=== PATIENT | female | born 1975 | race African-American/Black ===

== ENCOUNTER 2018-09-14 16:16 | Emergency (ER) | payer MEDICAID, SELFPAY ==
[2018-09-14 16:17] VITALS: BP 157/108; PULSE 122; RESP 17; TEMP 36.4; O2SAT 99; BMI 27.9
--- NOTE | 2018-09-14 16:37 | RAD_ITS ---
STUDY: X-RAY CHEST REASON FOR EXAM: Female, 43 years old. Neck and shoulder pain TECHNIQUE: PA and lateral views of the chest. # of Images: 2 COMPARISON: None. FINDINGS: Surgical clips in the right breast region The lungs are clear and expanded. There is no demonstrated pleural abnormality. Normal size heart. Normal mediastinum and vlad. Normal visualized pulmonary arteries. Normal visualized aortic arch and descending thoracic aorta. Normal visualized thoracic spine. Normal visualized ribs, clavicles, and shoulders. There is no demonstrated abnormality of the visualized soft tissue structures of the upper abdomen. RAD/Chest PA and Lateral IMPRESSION: Normal x-ray examination of the chest. Electronically Signed: Manoj Rosales DO at 17:37 EDT Tel , Service support ,
--- NOTE | 2018-09-14 16:37 | EKG12_ITS ---
Test Reason : Blood Pressure : / mmHG Vent. Rate : 097 BPM Atrial Rate : 097 BPM P-R Int : 160 ms QRS Dur : 076 ms QT Int : 328 ms P-R-T Axes : 080 079 065 degrees QTc Int : 416 ms Normal sinus rhythm Biatrial enlargement Possible Left ventricular hypertrophy Abnormal ECG Confirmed by JADEN HINES, ANISH ([id number]), commercial production editor JEET MARTIN ([id number] on 09/17/2018 12:24:42 PM Referred By: JACQUELINE Confirmed By:ANISH STANLEY MD
[2018-09-14 16:46] VITALS: PULSE 93; RESP 24; O2SAT 100
--- NOTE | 2018-09-14 16:48 | ED.RN ---
PT REPORTS CONSTANT RIGHT SHOULDER PAIN X 5 DAYS. REPORTS SOB, AND WORSENED ANXIETY THE LAST FEW DAYS ALSO. DRY NON PRODUCTIVE COUGH. PT DENIES PAIN IN CHEST.
[2018-09-14] MEDS: Ketorolac 30 MG/ML Syringe IV (17:23)
[2018-09-14 17:54] LABS: Hemoglobin 13.9 g/dl (12.0-15.0); Mean Corp Hgb Conc 34.8 g/gl (32-36); Mean Corpuscular Hgb 31.3 pg (27.0-32.0); Mean Corpuscular Volume 90.1 fL (81-99); Mean Platelet Vol. 8.6 fl (6.2-12.0); Platelet Count 387 K/mm3 (150-450); RBC Distribution Width SD 42.4 fl (35.1-43.9); Red Blood Count 4.44 M/mm3 (4.2-5.4); White Blood Count 9.2 K/mm3 (4.4-11.0)
[2018-09-14 17:57] LABS: Scan Indicated on CBC? Y/N NO
[2018-09-14 18:06] LABS: Prothrombin Time (Protime)PT. 12.9 SECONDS (11.7-14.9)
[2018-09-14 18:13] LABS: Anion Gap 10 (5-15); BUN 11 mg/dL (7-18); BUN/Creat Ratio 14.3 RATIO (10-20); Calcium,Total 9.2 mg/dL (8.5-10.1); Chloride 101 mmol/L (98-107); Creatinine, Serum 0.77 mg/dL (0.55-1.02); EST Glomerular Filtration Rate 88 mL/min (>60); Est Glom Filt Rate - Afr Amer 106 mL/min (>60); Estimated Creatinine Clearance 72.55 ml/min; Glucose 82 mg/dL (74-106); Potassium 3.4 mmol/L (3.5-5.1); Sodium Level 134 mmol/L (136-145)
[2018-09-14 18:16] LABS: D-Dimer Quantitative (DVT/PE) 0.61 FEU/ug/m (0.27-0.49)
--- NOTE | 2018-09-14 18:25 | CT_ITS ---
STUDY: CT CHEST WITHOUT CONTRAST REASON FOR EXAM: Female, 43 years old. Right shoulder and neck pain. Mildly elevated d-dimer RADIATION DOSAGE (If Supplied By Facility): CTDIvol = ( 26.27 ) mGy, DLP = ( 365.60 ) mGycm TECHNIQUE: Transaxial imaging was performed without the administration of intravenous contrast material. Please note that IV contrast was not administered as it infiltrated injection site # of Images: 1068 Individualized dose optimization techniques were used for this CT. COMPARISON: None. FINDINGS: The lungs are normal. There is no demonstrated pleural abnormality. Large bullous formation in the right lung apex. Normal heart and pericardium. Normal mediastinum. Normal hilar regions. Normal unenhanced pulmonary arteries. Normal aorta arch and descending thoracic aorta. Mildly prominent left hilar lymph nodes. There are multi-level degenerative changes of the thoracic spine. Status post cholecystectomy. Surgical clips in both breasts. CT/Chest without Contrast IMPRESSION: IV contrast was not administered for reasons above. Pulmonary and was taken not be excluded. Lungs are adequately inflated and clear. Large bullous formation in the right lung apex. Mildly prominent left axillary lymph nodes Electronically Signed: Manoj Rosales DO at 19:56 EDT Tel , Service support ,
[2018-09-14] MEDS: Morphine 4 MG/ML Syringe IV (18:45)
[2018-09-14] MEDS: Ondansetron 4 MG/2 ML Vial IV (18:45)
[2018-09-14 18:47] VITALS: PULSE 97; RESP 15; O2SAT 100
[2018-09-14 20:00] VITALS: PULSE 87; RESP 20; O2SAT 100
--- NOTE | 2018-09-14 20:04 | ED.VISSUMM ---
- ER Visit Summary Date of Service: 09/14/18 Chief Complaint: Right shoulder and neck pain History of Present Illness: The patient is a 43 F who presents with posterior right shoulder/chest pain. This is been present for 5 days. She has been trying multiple modalities at home including icy hot and hot compresses. This has provided some relief but her symptoms are getting worse. She states that it hurts to take a deep breath and she feels like she cannot take a deep breath. She denies any anterior chest pain or shortness of breath. She had initially attributed this to muscular spasm. She does have a history of prior similar symptoms with muscular spasm. However she also has a history of breast cancer with prior mastectomies. So notes that when she initially had the onset of symptoms she has been having some right leg pain which has since resolved. Physical Examination: Initial heart rate is 122 with blood pressure 157/1 8 vitals otherwise unremarkable Heart regular rhythm tachycardia Lungs are clear Patient does have reproducible posterior right thoracic tenderness in the distribution of the trapezius Abdomen soft nontender Extremities nontender without edema. Test Results: EKG shows sinus rhythm at a rate of 97. Laboratory studies notable for d-dimer of 0.61. Troponin is negative. INR normal. Two-view chest x-ray is normal. Emergency Department Course and Treatment: Given patient's cancer history pleuritic component and also report of right leg pain this raise concern for possible pulmonary embolism especially with her tachycardia. D-dimer was positive. A CTA was ordered. There was difficulty obtaining access but she did appear to have a functioning 20-gauge IV in the left upper arm. However while she was over at CAT scan this IV infiltrated and she did not have any contrast to the pulmonary arteries. We will still send this for a noncontrast read. However I cannot rule out pulmonary embolism. Patient will be empirically treated with Lovenox. I recommended hospital observation for either repeat attempts tomorrow versus a VQ scan versus venous duplexes. Treatment Plan: [] Disposition: Admit Impression: Posterior thoracic pain This note was generated with [employer] dictation software. It may contain incorrect words, spelling, and punctuation that were not noted in review of the chart prior to signing ED Disposition - Plan for ED Patient: Chief Complaint: Upper Extremity Injury Referrals: Diane Canales MD [Primary Care Provider] -
--- NOTE | 2018-09-14 20:07 | ED.DCSUM_ITS ---
- ER Visit Summary Date of Service: 09/14/18 Chief Complaint: Right shoulder and neck pain History of Present Illness: The patient is a 43 F who presents with posterior right shoulder/chest pain. This is been present for 5 days. She has been trying multiple modalities at home including icy hot and hot compresses. This has provided some relief but her symptoms are getting worse. She states that it hurts to take a deep breath and she feels like she cannot take a deep breath. She denies any anterior chest pain or shortness of breath. She had initially attributed this to muscular spasm. She does have a history of prior similar symptoms with muscular spasm. However she also has a history of breast cancer with prior mastectomies. So notes that when she initially had the onset of symptoms she has been having some right leg pain which has since resolved. Physical Examination: Initial heart rate is 122 with blood pressure 157/1 8 vitals otherwise unremarkable Heart regular rhythm tachycardia Lungs are clear Patient does have reproducible posterior right thoracic tenderness in the distribution of the trapezius Abdomen soft nontender Extremities nontender without edema. Test Results: EKG shows sinus rhythm at a rate of 97. Laboratory studies not able for d-dimer of 0.61. Troponin is negative. INR normal. Two-view chest x- ray is normal. Emergency Department Course and Treatment: Given patient's cancer history pleuritic component and also report of right leg pain this raise concern for possible pulmonary embolism especially with her tachycardia. D-dimer was positive. A CTA was ordered. There was difficulty obtaining access but she did appear to have a functioning 20-gauge IV in the left upper arm. However while she was over at CAT scan this IV infiltrated and she did not have any contrast to the pulmonary arteries. We will still send this for a noncontrast read. However I cannot rule out pulmonary embolism. Patient will be empirically treated with Lovenox. I recommended hospital observation for either repeat attempts tomorrow versus a VQ scan versus venous duplexes. Treatment Plan: [] Disposition: Admit Impression: Posterior thoracic pain This note was generated with [employer]140 dictation software. It may contain incorrect words, spelling, and punctuation that were not noted in review of the chart prior to signing ED Disposition - Plan for ED Patient: Chief Complaint: Upper Extremity Injury Referrals: Diane Canales MD [Primary Care Provider] -
--- NOTE | 2018-09-14 20:10 | ED.RN ---
PT REQUESTING PAIN MEDICATION, DR. HENDRICKS AWARE.
[2018-09-14] MEDS: Enoxaparin 80 MG/0.8 ML Syringe 70 MG SC (20:26)
--- NOTE | 2018-09-14 20:35 | ED.DEP ---
ED Disposition - Plan for ED Patient: Chief Complaint: Upper Extremity Injury Instructions: Pulmonary Embolism, ED Spasm Muscle Prescriptions: Rivaroxaban [Xarelto] 15 mg PO BID #42 tab Referrals: Nigel Tobar MD [STAFF PHYSICIAN] -
[2018-09-14 20:47] VITALS: BP 113/90; PULSE 103; RESP 22; O2SAT 97
== END 2018-09-14 20:48 | disposition home or self-care (01) ==
LOC: ED 17:28
PROVIDERS: Emergency Provider Emergency Medicine; Family Provider Internal Medicine; PCP Internal Medicine
DX: M54.6 Pain in thoracic spine (principal); Z85.3 Personal history of malignant neoplasm of breast; Z72.0 Tobacco use
CPT/HCPCS: 36415; 71046; 71250; 80048; 84484; 85027; 85379; 85610; 93005; 96372; 96374; 96375; 99285; A4216; J2405

== ENCOUNTER 2018-09-27 13:14 | Emergency (ER) | payer MEDICAID, SELFPAY ==
[2018-09-27 13:15] VITALS: BP 134/83; PULSE 95; RESP 14; TEMP 35.9; O2SAT 100; BMI 27.9
--- NOTE | 2018-09-27 13:34 | EKG12_ITS ---
Test Reason : UPPER EXTREMITY Blood Pressure : / mmHG Vent. Rate : 078 BPM Atrial Rate : 078 BPM P-R Int : 170 ms QRS Dur : 088 ms QT Int : 382 ms P-R-T Axes : 016 075 052 degrees QTc Int : 435 ms Normal sinus rhythm Minimal voltage criteria for LVH, may be normal variant Borderline ECG Confirmed by LV HINES, NGHIA ([id number]), staff editor CESAR WHEATLEY ([id number]) on 10/01/2018 3:55:38 PM Referred By: SHRUTI Confirmed By:NGHIA AWAN MD
--- NOTE | 2018-09-27 14:07 | ED.RN ---
Medic attempting IV.
[2018-09-27] MEDS: Ketorolac 30 MG/ML Syringe IV (14:11)
[2018-09-27] MEDS: MethylPREDNISolone 125 MG/2 ML Vial IV (14:11)
[2018-09-27] MEDS: 0.9% Normal Saline 1,000 ML 150 ML IV (14:11)
[2018-09-27 14:15] VITALS: BP 118/75; PULSE 81; RESP 24; O2SAT 100
--- NOTE | 2018-09-27 14:15 | RAD_ITS ---
STUDY: X-RAY CHEST REASON FOR EXAM: Female, 43 years old. Chest pain. TECHNIQUE: Single AP portable view of the chest. COMPARISON: Comparison is made with prior study dated September 14, 2018. FINDINGS: EKG electrodes are seen. Stable increased linear markings in the right upper lobe suggestive of scarring. Surgical clips are seen overlying the right hemithorax. There is no demonstrated pleural abnormality. Normal size heart. Normal mediastinum and vlad. Normal visualized pulmonary arteries. Normal visualized aortic arch and descending thoracic aorta. Normal visualized thoracic spine. Normal visualized ribs, clavicles, and shoulders. Prior cholecystectomy. RAD/Chest 1 View (Portable) IMPRESSION: Stable findings of increasing markings in the right upper lobe suggestive of scarring. Electronically Signed: Jaret Gordillo MD at 14:44 EDT Tel [phone], Service support ,
[2018-09-27 14:19] LABS: Absolute Lymphocyte Count 3.62 X10^3/ul (0.83-4.51); Absolute Neutrophil Count 4.1 X10^3/uL (2.0-7.7); Basophil# 0.02 X10^3/uL; Basophil% 0.2 % (0-1); Eosinophils% 3.5 % (0-5); Hematocrit 36.6 % (37-47); Lymphocyte # 3.62 X10^3/ul (4.0); Lymphocyte % 42.5 % (19-41); Mean Corp Hgb Conc 32.8 g/gl (32-36); Mean Corpuscular Hgb 30.9 pg (27.0-32.0); Mean Corpuscular Volume 94.3 fL (81-99); Mean Platelet Vol. 8.6 fl (6.2-12.0); Monocyte# 0.45 X10^3/uL; Monocyte% 5.3 % (0-10); Neutrophil # 4.11 X10^3/uL (2.7-7.7); Neutrophil % 48.3 % (47-70); Platelet Count 338 K/mm3 (150-450); RBC Distribution Width CV 13.4 % (11.6-14.6); RBC Distribution Width SD 45.7 fl (35.1-43.9); Red Blood Count 3.88 M/mm3 (4.2-5.4); White Blood Count 8.5 K/mm3 (4.4-11.0)
[2018-09-27 14:23] LABS: POSITIVE COUNT NO; POSITIVE DIFFERENTIAL NO; POSITIVE MORPHOLOGY NO
[2018-09-27 14:26] LABS: Anion Gap 7 (5-15); BUN 11 mg/dL (7-18); BUN/Creat Ratio 13.9 RATIO (10-20); Calcium,Total 8.8 mg/dL (8.5-10.1); Chloride 105 mmol/L (98-107); Creatinine, Serum 0.79 mg/dL (0.55-1.02); EST Glomerular Filtration Rate 85 mL/min (>60); Est Glom Filt Rate - Afr Amer 103 mL/min (>60); Estimated Creatinine Clearance 70.72 ml/min; Glucose 99 mg/dL (74-106); Potassium 3.8 mmol/L (3.5-5.1); Sodium Level 137 mmol/L (136-145)
[2018-09-27 14:29] LABS: D-Dimer Quantitative (DVT/PE) 0.55 FEU/ug/m (0.27-0.49)
--- NOTE | 2018-09-27 14:29 | ED.RN ---
critical value on d-dimer taken from lab. Dr. Joe jenkins.
--- NOTE | 2018-09-27 15:03 | ED.VISSUMM ---
- ER Visit Summary Date of Service: 09/27/18 Chief Complaint: Right arm pain, cough History of Present Illness: The patient is a 43 F who was seen 2 weeks ago with right-sided neck and shoulder pain. Her d-dimer was slightly elevated. Her IV infiltrated when she was sent for a CTA of the chest. She is placed on Xarelto prophylactically. Venous ultrasound of the legs was negative yesterday. Patient is scheduled to go to [place] tomorrow for CTA of her chest. When PCPs office called today to notify her of the ultrasound results she noted continued significant pain to the lateral portion of her right shoulder and she was advised to come to the emergency room. Patient denies actual chest pain or shortness of breath. She has been on Xarelto for the past 2-1/2 weeks. Physical Examination: Vital signs are unremarkable. Patient sitting upright in bed no acute distress. Head neck examination is normal. Heart is regular rate and rhythm. Lung sounds are clear. Abdomen is soft and nontender. Right upper extremity examination was tenderness across the top of the shoulder and over the biceps muscle in the right upper extremity. She has full range of motion with no overlying skin changes. Strong distal pulses are noted. Test Results: EKG is sinus at 78 with no sign of acute ischemia. Chest x-ray shows stable findings of increased markings in the right upper lung suggestive of scarring. CBC and chemistry studies are normal. D-dimer remains slightly elevated at 0.55. This is compared to a d-dimer of 0.61 on her last visit. Emergency Department Course and Treatment: Patient was given Toradol and Solu-Medrol. Due to continued pain she was given a small dose of Dilaudid and Zofran. I discussed the elevated d-dimer with her. Patient currently has a 22-gauge IV in her left forearm. I spoke with CT and they ask for a 20-gauge or larger before injecting. Nursing staff states that there is no other options available for them to establish access. I spoke with the patient about possible central line placement for a CT. At this time patient would prefer to follow-up tomorrow at [place]. She is already on Xarelto. I think this is reasonable. Patient be given a prescription for Percocet as she has been on this in the past without difficulty. Treatment Plan: [] Disposition: Discharge Impression: Right shoulder strain Elevated d-dimer This note was generated with [employer] dictation software. It may contain incorrect words, spelling, and punctuation that were not noted in review of the chart prior to signing ED Disposition - Plan for ED Patient: Chief Complaint: Upper Extremity Injury Referrals: Nigel Tobar MD [Primary Care Provider] -
--- NOTE | 2018-09-27 15:08 | ED.DCSUM_ITS ---
- ER Visit Summary Date of Service: 09/27/18 Chief Complaint: Right arm pain, cough History of Present Illness: The patient is a 43 F who was seen 2 weeks ago with right-sided neck and shoulder pain. Her d-dimer was slightly elevated. Her IV infiltrated when she was sent for a CTA of the chest. She is placed on Xarelto prophylactically. Venous ultrasound of the legs was negative yesterday. Patient is scheduled to go to [place] tomorrow for CTA of her chest. When PCPs office called today to notify her of the ultrasound results she noted continued significant pain to the lateral portion of her right shoulder and she was advised to come to the emergency room. Patient denies actual chest pain or s hortness of breath. She has been on Xarelto for the past 2-1/2 weeks. Physical Examination: Vital signs are unremarkable. Patient sitting upright in bed no acute distress. Head neck examination is normal. Heart is regular rate and rhythm. Lung sounds are clear. Abdomen is soft and nontender. Right upper extremity examination was tenderness across the top of the shoulder and over the biceps muscle in the right upper extremity. She has full range of motion with no overlying skin changes. Strong distal pulses are noted. Test Results: EKG is sinus at 78 with no sign of acute ischemia. Chest x-ray shows stable findings of increased markings in the right upper lung suggestive of scarring. CBC and chemistry studies are normal. D-dimer remains slightly elevated at 0.55. This is compared to a d-dimer of 0.61 on her last visit. Emergency Department Course and Treatment: Patient was given Toradol and Solu- Medrol. Due to continued pain she was given a small dose of Dilaudid and Zofran. I discussed the elevated d-dimer with her. Patient currently has a 22- gauge IV in her left forearm. I spoke with CT and they ask for a 20-gauge or larger before injecting. Nursing staff states that there is no other options available for them to establish access. I spoke with the patient about possible central line placement for a CT. At this time patient would prefer to follow-up tomorrow at [place]. She is already on Xarelto. I think this is reasonable. Patient be given a prescription for Percocet as she has been on this in the past without difficulty. Treatment Plan: [] Disposition: Discharge Impression: Right shoulder strain Elevated d-dimer This note was generated with [employer] dictation software. It may contain incorrect words, spelling, and punctuation that were not noted in review of the chart prior to signing ED Disposition - Plan for ED Patient: Chief Complaint: Upper Extremity Injury Referrals: Nigel Tobar MD [Primary Care Provider] -
--- NOTE | 2018-09-27 15:10 | DCINST.ED_ITS ---
ED Disposition - Plan for ED Patient: Disposition: Home or Assisted Living Chief Complaint: Upper Extremity Injury Instructions: ED Sprain Shoulder Prescriptions: Oxycodone HCl/Acetaminophen [Percocet 5/325] 1 tablet PO Q6H PRN PRN 3 Days #12 tablet PRN Reason: Pain Referrals: Nigel Tobar MD [Primary Care Provider] - Additional Instructions: Follow-up tomorrow at [place] as discussed.
[2018-09-27] MEDS: HYDROmorphone 0.5 MG/0.5 ML SYRINGE IV (15:23)
[2018-09-27] MEDS: Ondansetron 4 MG/2 ML Vial IV (15:24)
[2018-09-27 15:31] VITALS: BP 120/85; PULSE 70; RESP 16; O2SAT 100
== END 2018-09-27 15:32 | disposition home or self-care (01) ==
PROVIDERS: Emergency Provider Emergency Medicine; Family Provider Family Medicine; PCP Family Medicine
DX: S46.211A Strain of muscle, fascia and tendon of other parts of biceps, right arm, initial encounter (principal); X58.XXXA Exposure to other specified factors, initial encounter; R79.1 Abnormal coagulation profile; Z79.01 Long term (current) use of anticoagulants; Z72.0 Tobacco use
CPT/HCPCS: 71045; 80048; 85025; 85379; 93005; 96361; 96374; 96375; 99285; J7030; J2405

== ENCOUNTER 2019-07-16 12:06 | Emergency (ER) | payer MEDICAID, SELFPAY ==
[2019-07-16 12:06] VITALS: BP 158/83; PULSE 113; RESP 16; TEMP 36.7; O2SAT 99; BMI 27.0
[2019-07-16 12:17] VITALS: BP 120/76; PULSE 74; RESP 19; TEMP 36.7; O2SAT 99
--- NOTE | 2019-07-16 12:27 | ED.DCSUM_ITS ---
- ER Visit Summary Date of Service: 07/16/19 Chief Complaint: [Redness and swelling to right third toe] History of Present Illness: The patient is a 44 F [resents to the emergency department with complaint of redness and swelling to the right third toe that she noticed 3 days ago. Patient states that she had a mosquito bite to the area and was scratching at it. She denies any other trauma. She denies any fevers. Patient not having pain with ambulation.] Physical Examination: [Right foot-patient has a blister to the base of the right third toe in the webspace adjacent to the fourth toe. There is purulent fluid underneath the blister. There is some faint erythema in the webspace between the third and fourth toe. No bony tenderness on exam. Neurovascular intact.] Test Results: [None indicated] Emergency Department Course and Treatment: [Incision and drainage of suspected abscess-skin was cleansed with alcohol and using a 18-gauge needle stab incision was made into the infected blister and large amount of free-flowing purulent debris was expressed. Dressing was applied. She was started on Keflex and Bactrim.] Treatment Plan: [Patient will be treated with Keflex and Bactrim. Patient will be advised to follow-up with primary care physician within next 3 to 5 days.] Disposition: [Discharged home in stable condition] Impression: [Right third toe abscess with incision and drainage Cellulitis right third toe] This note was generated with [employer] dictation software. It may contain incorrect words, spelling, and punctuation that were not noted in review of the chart prior to signing ED Disposition - Plan for ED Patient: Referrals: Nigel Tobar MD [Primary Care Provider] -
--- NOTE | 2019-07-16 12:29 | ED.DEP ---
ED Disposition - Plan for ED Patient: Instructions: Cellulitis, ABSCESS, Incision and Drainage Prescriptions: Smz/Tmp Ds [Bactrim Ds] 1 tab PO BID #14 tab Prescription Printed Cephalexin [Keflex] 500 mg PO Q6 #40 cap Prescription Printed Referrals: Nigel Tobar MD [Primary Care Provider] - 3-5 Days
[2019-07-16] MEDS: Smz/Tmp Ds Tablet 1 TABLET PO (12:40)
[2019-07-16] MEDS: Cephalexin 250 MG Capsule 500 MG PO (12:40)
[2019-07-16 12:50] VITALS: RESP 19
== END 2019-07-16 12:50 | disposition home or self-care (01) ==
LOC: ED 12:45
PROVIDERS: Emergency Provider Emergency Medicine; Family Provider Family Medicine; PCP Family Medicine
DX: L02.611 Cutaneous abscess of right foot (principal); L03.031 Cellulitis of right toe; Z72.0 Tobacco use
CPT/HCPCS: 10060; 99283

== ENCOUNTER 2021-07-25 06:39 | Emergency (ER) | payer MEDICAID, SELFPAY ==
[2021-07-25 06:40] VITALS: BP 144/86; PULSE 89; RESP 16; TEMP 36.7; O2SAT 100; BMI 28.9
--- NOTE | 2021-07-25 06:43 | RAD_ITS ---
STUDY: X-RAY - RIGHT FOOT CLINICAL: Female, 46 years old. pain TECHNIQUE: 3 view(s) of the foot. COMPARISON: None. FINDINGS: Normal talus, calcaneus, and tarsal bones. Normal visualized subtalar, talonavicular, calcaneocuboid, tarsal and tarsometatarsal articulations. Normal metatarsi. Normal metatarsophalangeal joint of the great toe. Normal tibial and fibular sesamoid bones. Normal interphalangeal joint of the great toe. Normal phalanges of the great toe. Normal second through fifth metatarsophalangeal joints. Normal interphalangeal joints and phalanges of the lesser toes. The soft tissue structures are unremarkable. RAD/Foot min 3 Views IMPRESSION: Normal x-ray examination of the foot. Electronically Signed: Joe Medel MD at 7:16 EDT Tel , Service support ,
--- NOTE | 2021-07-25 06:44 | RAD_ITS ---
STUDY: X-RAY - RIGHT ANKLE REASON FOR EXAM: Female, 46 years old. pain TECHNIQUE: 3 view(s) of the ankle. COMPARISON: None. FINDINGS: Normal visualized distal tibia and fibula. Normal medial and lateral malleoli. Normal tibiotalar articulation and ankle mortise. Normal visualized talus and calcaneus. The visualized subtalar, talonavicular, calcaneocuboid and tarsal articulations are normal. The soft tissue structures are unremarkable. RAD/Ankle min 3 Views IMPRESSION: Normal x-ray examination of the ankle. Electronically Signed: Joe Medel MD at 7:15 EDT Tel , Service support ,
--- NOTE | 2021-07-25 06:55 | ED.VIS.LOWEX ---
HPI History of Present Illness Chief Complaint: Lower Extremity Injury Informant: patient Narrative Narrative: Patient is a 46-year-old female presenting with atraumatic right foot pain. 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 She started having some pain 2 days ago. States the pain normally goes away but it did not last night which brought brought her to the emergency room. She not take anything for the pain. She denies associated numbness or tingling. She notes over the years she has had intermittent pain in this area but it is always gone away and the fact that it has not was abnormal. She is also concerned that she has to go back to work tonight. [facility] Medical History Breast CA Home Medications pregabalin [Lyrica] 75 mg PO BID 07/25/21 [History Last Taken Unknown] Allergy/AdvReac Type Severity Reaction Status Date / Time No Known Allergies Allergy Verified 07/25/21 06:43 Surgical History H/O mastectomy Hx of cholecystectomy Social History Smoking Status: Current every day smoker tobacco type: cigarettes ROS ROS ED Constitutional Constitutional ED: Denies chills or fever(s) Eyes Eyes: Denies change in vision ENT ENT ED: Denies rhinorrhea Cardiovascular Cardiovascular: Denies chest pain Respiratory/Chest Respiratory/Chest: Denies cough or dyspnea Gastrointestinal Gastrointestinal: Denies abdominal pain or nausea Musculoskeletal Musculoskeletal: Reports other Details: Right foot pain ; Denies arthralgias or myalgias Integumentary Denies rash Neurologic Neurologic: Denies headache(s), paresthesias or weakness EXAM Physical Exam Const Vital Signs: 07/25/21 06:40 Temperature 98.1 F Temperature Source Oral Pulse Rate 89 Respiratory Rate 16 Blood Pressure 144/86 H Blood Pressure Mean 105 Pulse Ox 100 Oxygen Delivery Method Room Air Positive well nourished and well developed General Appearance ED: well developed HEENT normocephalic Eyes PERRL Neck full ROM Chest Wall inspection of chest normal Resp normal respiratory effort and clear to auscultation bilaterally Cardio regular rate, regular rhythm and no murmurs Cardio Narrative: 2+ bilateral DP and PT pulses. Brisk capillary refill. GI non-distended Extremity normal to inspection and full ROM Extremity Narrative: No obvious deformity of the right lower extremity. Normal Cadet test. No bony tenderness. Patient has a pinpoint area of tenderness just below the right lateral malleolus. General Extremety ED: Negative for edema General Extremity: Negative for edema Neuro oriented x3, moves all extremities and no sensory deficits noted Sensorium / Orientation: alert Psych mental status grossly normal Skin Lesions: no lesions Rashes: no rashes MDM MDM MDM Narrative Medical decision making narrative: Patient evaluated for atraumatic right foot pain. Will obtain x-rays. On physical exam there is no concerns for trauma or acute infection. I suspect is muscle skeletal. As long as there is no alarming findings on x-ray, will refer to podiatry for outpatient follow-up and recommend rice therapy. Radiography X-Ray: Read by ED Physician and No Fracture Discharge Plan Triage Chief Complaint: Lower Extremity Injury ED Provider: Melisa Shultz Dx/Rx/DC Orders Clinical Impression: Acute pain of right foot Instructions: DANIEL HUERTA Foot Sprain Prescriptions: No Action pregabalin [Lyrica] 75 mg Capsule 75 mg PO BID RF: 0 Primary Care Provider: Nigel Tobar Referrals: Milan Quinones DPM [STAFF PHYSICIAN] - Nigel Tobar MD [Primary Care Provider] - Disposition Disposition: Home, Self Care
[2021-07-25] MEDS: Ibuprofen 600 MG Tablet PO (07:03)
[2021-07-25 07:23] VITALS: RESP 17
== END 2021-07-25 07:24 | disposition home or self-care (01) ==
PROVIDERS: Emergency Provider Emergency Medicine; PCP Family Medicine
DX: M79.671 Pain in right foot (principal); F17.210 Nicotine dependence, cigarettes, uncomplicated; Z79.899 Other long term (current) drug therapy
CPT/HCPCS: 73610; 73630; 99283

== ENCOUNTER → 2021-08-20 07:20 | Outpatient (CLI) | payer MEDICAID, SELFPAY ==
--- NOTE | 2021-08-20 07:33 | MRI_ITS ---
STUDY: MRI RIGHT ANKLE WITHOUT CONTRAST REASON FOR EXAM: Female, 46 years old. CALCANEUS FX TECHNIQUE: Standardized fat and water weighted pulse sequences were obtained in all 3 orthogonal planes. COMPARISON: X-ray dated 07/25/2020. FINDINGS: No acute calcaneal fracture. No dislocation. No bone destruction. Tibiotalar cartilage preserved. Subtalar cartilage preserved. Talonavicular cartilage preserved. Calcaneocuboid cartilage preserved. Navicular cuneiform cartilage preserved. Mild second tarsometatarsal joint arthrosis. No significant bone marrow edema or contusion. Small tibiotalar/subtalar joint effusion. No significant soft tissue swelling. No solid, cystic or lipomatous soft tissue lesions. Normal Lisfranc ligament. Normal syndesmotic. Normal anterior and posterior talofibular ligaments. Normal sinus Tarsi/subtalar ligament. Normal deltoid ligament. Normal spring ligament. Normal extensor tendons. Minimal peroneus longus and brevis tenosynovitis without tendon tear (axial images 16 and 17 series 8). Normal posterior tibialis and flexor tendons. Normal Achilles tendon. Trace retrocalcaneal bursitis (sagittal image 11 series 7). Normal plantar fascial. Normal muscles of the midfoot/hindfoot. MRI/Lower Ext Joint Only (Routine) IMPRESSION: No calcaneal fracture Trace retrocalcaneal bursitis Mild peroneus longus/brevis tenosynovitis Small tibiotalar/subtalar joint effusion Mild second tarsometatarsal joint arthrosis Electronically Signed: Mohit Shirley DO at 12:31 EDT Tel , Service support ,
== END ==
PROVIDERS: PCP Family Medicine; Referring Provider Podiatrist Foot & Ankle Surgery; Visit Provider Podiatrist Foot & Ankle Surgery
DX: S92.001A Unspecified fracture of right calcaneus, initial encounter for closed fracture (principal)
CPT/HCPCS: 73721

== ENCOUNTER 2022-09-06 12:20 | Emergency (ER) | payer MEDICAID, SELFPAY ==
[2022-09-06] VITALS (7 sets, daily range): BP systolic 138–176; BP diastolic 87–109; PULSE 85–102; RESP 14–22; TEMP 36.1; O2SAT 100; BMI 28.7
--- NOTE | 2022-09-06 13:34 | CT_ITS ---
STUDY: CT Chest W/O Contrast Injection 09/06/2022 4:45 PM REASON FOR EXAM: Female, 47 years old. chest and back pain Individualized dose optimization techniques were used for this CT. TECHNIQUE: Transaxial imaging was performed withoutIV contrast material. COMPARISON: 09.14.18 FINDINGS: There are scattered blebs and bullae. This can be seen in pulmonary emphysema. Stable right apical bleb or bullae. There is no pneumothorax. There is no demonstrated pleural abnormality. Stable axillary adenopathy. Normal heart and pericardium with no evidence for calcifications of the coronary arteries. Normal mediastinum. Normal hilar regions. Normal pulmonary arteries. Normal aorta arch and descending thoracic aorta. Normal osseous structures. The gallbladder is surgically absent. CT/Chest without Contrast IMPRESSION: Stable axillary adenopathy. There are no acute findings. Electronically Signed: Edwin Carreno MD at 16:48 EDT ,
--- NOTE | 2022-09-06 13:35 | EKG12_ITS ---
Test Reason : CP Blood Pressure : / mmHG Vent. Rate : 111 BPM Atrial Rate : 111 BPM P-R Int : 168 ms QRS Dur : 072 ms QT Int : 332 ms P-R-T Axes : 073 074 063 degrees QTc Int : 451 ms Sinus tachycardia Biatrial enlargement Left ventricular hypertrophy ( Sokolow-Henry , Romhilt-Oakley ) Abnormal ECG Confirmed by JADEN HINES, ANISH ([id number]), publication editor HARLEEN MEDEL ([id number]) on 09/08/2022 12:59:40 PM Referred By: SANAZ/KIMMY Confirmed By:ANISH STANLEY MD
--- NOTE | 2022-09-06 13:36 | EDS_ITS ---
HPI History of Present Illness Chief Complaint: Chest Pain Detail of Chief Complaint: Pain in chest and back and left arm Informant: patient Narrative Narrative: Patient presents the emergency department with complaint of pain in her back and chest and underneath her left arm that started 5 days ago. Patient states that she was seen at urgent care yesterday and had some x-rays and was started on prednisone. She has history of degenerative disc disease. Patient states pain worse with movement and cough and deep breath. She denies any injury. She denies recent travel or surgery. She has no history of PE or DVT. Patient describes a pressure and a heaviness in her back and chest. She had no nausea or vomiting. She denies shortness of breath. Patient states that initially she thought that she had a pulled muscle. Prior Similar Symptoms: No PFSH PFSH Medical History Breast CA Home Medications pregabalin 75 mg capsule (Lyrica) 75 mg PO BID 07/25/21 [History Last Taken Unknown] cyclobenzaprine 10 mg tablet 10 mg PO TID PRN Muscle Spasm #20 TABLETS 09/06/22 [Rx Last Taken Unknown] hydrocodone-acetaminophen 5-325mg 5mg-325mg 1 tab PO Q4H PRN PRN Pain 2 days #14 TABLETS 09/06/22 [Rx Last Taken Unknown] lidocaine 5 % topical patch 1 patch transdermal DAILY 09/06/22 [History Last Taken Unknown] naproxen 500 mg tablet 500 mg PO BID #14 tabs 09/06/22 [Rx Last Taken Unknown] prednisone 20 mg tablet 40 mg PO BID 09/06/22 [History Last Taken Unknown] Allergy/AdvReac Type Severity Reaction Status Date / Time No Known Allergies Allergy Verified 09/06/22 12:22 Surgical History H/O mastectomy Hx of cholecystectomy Social History Smoking Status: Current every day smoker tobacco type: cigarettes ROS ROS ED Review of Systems ROS Unobtainable: other Constitutional Constitutional ED: Reports lethargy; Denies chills, fever(s), sweats or weight loss Eyes Eyes: Denies blurry vision, change in vision or diplopia ENT ENT ED: Denies rhinorrhea or sore throat Cardiovascular Cardiovascular: Reports chest pain; Denies orthopnea or racing heartbeat Respiratory/Chest Respiratory/Chest: Denies cough, dyspnea, dyspnea on exertion, orthopnea or sputum Gastrointestinal Gastrointestinal: Denies abdominal pain, diarrhea, nausea or vomiting Genitourinary Genitourinary ED: Denies dysuria, hematuria or urinary frequency Musculoskeletal Musculoskeletal: Reports back pain; Denies arthralgias, myalgias or neck pain Integumentary Denies abscess, Abrasions or rash Neurologic Neurologic: Denies headache(s) or weakness Psychiatric Psychiatric: Denies anxiety, depression or suicidal thoughts Endocrine Endocrinology: Denies polydipsia, polyphagia or polyuria Hematologic/Lymphatic Hematologic/Lymphatic: Denies easy bleeding, easy bruising or lymphadenopathy Allergic/Immunologic Allergic/Immunologic ED: Denies mouth swelling, tongue swelling or urticaria EXAM Physical Exam Const Vital Signs: 09/06/22 12:21 09/06/22 13:20 09/06/22 13:35 Temperature 96.9 F L Temperature Source Temporal Pulse Rate 102 H 85 Respiratory Rate 18 14 Blood Pressure 176/109 H 147/87 H Blood Pressure Mean 131 107 Pulse Ox 100 Oxygen Delivery Method Room Air Room Air Room Air 09/06/22 14:00 09/06/22 15:00 09/06/22 16:00 Temperature Temperature Source Pulse Rate Respiratory Rate 16 16 16 Blood Pressure Blood Pressure Mean Pulse Ox Oxygen Delivery Method 09/06/22 17:00 Temperature Temperature Source Pulse Rate 88 Respiratory Rate 22 H Blood Pressure 138/94 H Blood Pressure Mean 108 Pulse Ox Oxygen Delivery Method Positive well nourished and well developed General Appearance ED: well developed and NAD HEENT Reports TM's clear and moist mucous membranes normocephalic and atraumatic; Negative for trauma or tenderness Tympanic Membrane ED: Yes TM's clear Eyes PERRL and EOMs intact bilaterally General Eye ED: Negative for pale conjunctiva or scleral icterus Neck no lymphadenopathy, supple and no JVD General: Negative for tenderness Chest Wall inspection of chest normal and palpation of chest normal Chest: Negative for tenderness Resp normal respiratory effort and clear to auscultation bilaterally Effort and Inspection: Negative for respiratory distress or pain with movement Auscultation: Negative for rhonchi, wheezes or diminished lung sounds Cardio regular rate, regular rhythm, S1 normal heart sound, S2 normal heart sound and no murmurs Peripheral Pulses: pulses 2+ throughout GI normal to inspection, nondistended, normoactive bowel sounds, soft to palpation, non-tender, non-distended and no masses Back/Spine no CVA tenderness Back/Spine Narrative: Patient has some tenderness palpation over the left upper thoracic paraspinal musculature. No tenderness over the thoracic or lumbar spine noted. Extremity normal to inspection General Extremety ED: Negative for edema General Extremity: Negative for edema Neuro oriented x3, CN's II-XII intact bilaterally, no sensory deficits noted and gait normal Sensorium / Orientation: awake, alert, oriented to person, oriented to place and oriented to time Motor Exam: strength 5/5 throughout and strength abnormal Psych mental status grossly normal Skin no rashes or lesions noted and no wounds Heart Score History: Slightly/Non-Suspicious ECG: Nonspecific Repolarization Age: </= 45 years Risk Factors: 1 or 2 Risk Factors Troponin: </= Normal Limit Score: 2 MDM MDM MDM Narrative Medical decision making narrative: IV line established on arrival. Patient was medicated morphine and Zofran. She continued to have pain. She was given a milligram of Dilaudid IV. Patient had lab work which showed a minimally elevated white count of 11.5. Chemistries were unremarkable. Troponin was 4. Patient had ordered a CTA of the chest to rule out PE versus dissection however her IV infiltrated and they were unable to perform the study. Patient was a very difficult IV stick and we could only obtain a small 22-gauge IV in her left foot. I did do a D-dimer which was normal. I did do a CT chest without contrast and this also was unremarkable. My suspicion for dissection is low as she has normal pulses and no other significant risk factors for this. Patient was markedly improved after treatment with the Dilaudid. At this point I feel she can be discharged to home as she also had a delta troponin that was normal. Etiology of her pain is unclear. She will be given a prescription for Naprosyn, Flexeril, and [place]. Patient to follow-up with her primary care physician in 3 to 5 days. Lab Data Attestation: I reviewed the patient's lab results. Labs: Laboratory Results - last 24 hr 09/06/22 09/06/22 09/06/22 14:00 14:00 16:47 WBC 11.5 H RBC 3.85 L Hgb 12.0 Hct 35.7 L MCV 92.7 MCH 31.2 MCHC 33.6 RDW Std Deviation 44.8 H RDW Coeff of Jazz 13.3 Plt Count 355 MPV 8.9 Immature Gran % (Auto) 0.300 Neut % (Auto) 64.1 Lymph % (Auto) 28.8 [place] % (Auto) 6.1 Eos % (Auto) 0.4 Baso % (Auto) 0.3 Absolute Neuts (auto) 7.4 Absolute Lymphs (auto) 3.32 Nucleated RBC % 0 D-Dimer Quant (PE/DVT) Sodium 139 Potassium 3.8 Chloride 108 H Carbon Dioxide 23.0 Anion Gap 8 BUN 8 Creatinine 0.99 Estim Creat Clear Calc 54.15 Est GFR (MDRD) Af Amer 78 Est GFR (MDRD) Non-Af 65 BUN/Creatinine Ratio 8.1 L Glucose 131 H Calcium 9.5 Troponin I High Sens 4 6 09/06/22 16:47 WBC RBC Hgb Hct MCV MCH MCHC RDW Std Deviation RDW Coeff of Jazz Plt Count MPV Immature Gran % (Auto) Neut % (Auto) Lymph % (Auto) [place] % (Auto) Eos % (Auto) Baso % (Auto) Absolute Neuts (auto) Absolute Lymphs (auto) Nucleated RBC % D-Dimer Quant (PE/DVT) 0.39 Sodium Potassium Chloride Carbon Dioxide Anion Gap BUN Creatinine Estim Creat Clear Calc Est GFR (MDRD) Af Amer Est GFR (MDRD) Non-Af BUN/Creatinine Ratio Glucose Calcium Troponin I High Sens Radiography Diagnostic Testing: Clinical Impression(s) from Imaging Studies Chest CT 09/06/22 13:34 IMPRESSION: Stable axillary adenopathy. There are no acute findings. Electronically Signed: Edwin Carreno MD at 16:48 EDT , EKG Initial EKG: Attestation: I personally reviewed and interpreted this EKG as follows: Comments: Sinus tachycardia with a ventricular rate of 111 bpm with LVH Discharge Plan Triage Chief Complaint: Chest Pain ED Provider: Stevan Aburto Dx/Rx/DC Orders Clinical Impression: Back pain, Chest pain Instructions: ED Back Pain (Acute or Chronic), ED Chest Pain, Uncertain Cause Prescriptions: New cyclobenzaprine [cyclobenzaprine] 10 mg tablet 10 mg PO TID PRN (Reason: Muscle Spasm) Qty: 20 0RF hydrocodone-acetaminophen [hydrocodone-acetaminophen] 5-325 mg tablet 1 tab PO Q4H PRN PRN (Reason: Pain) 2 Days Qty: 14 0RF naproxen 500 mg tablet 500 mg PO BID Qty: 14 0RF No Action pregabalin [Lyrica] 75 mg Capsule 75 mg PO BID prednisone 20 mg tablet 40 mg PO BID Label Comments: Take 2 tablets by mouth once daily for 5 days. lidocaine 5 % adhesive patch,medicated 1 patch transdermal DAILY Label Comments: Apply 1 Patch as directed once daily for 14 days. Remove old patch prior to placing new patch. Location left shoulder/neck on for 12 hours and off for 12 hours Primary Care Provider: Nigel Tobar Referrals: Nigel Tobar MD [Primary Care Provider] - 3-5 Days Disposition Disposition: Home, Self Care
[2022-09-06] MEDS: Morphine 4 MG/ML Syringe IV (14:04)
[2022-09-06] MEDS: Ondansetron 4 MG/2 ML Vial IV (14:04)
[2022-09-06] MEDS: Aspirin 81 MG TAB.CHEW 324 MG PO (14:09)
[2022-09-06] MEDS: 0.9% Normal Saline 1,000 ML 150 ML IV (14:09)
[2022-09-06 14:14] LABS: Absolute Lymphocyte Count 3.32 X10^3/uL (0.83-4.51); Absolute Neutrophil Count 7.4 X10^3/uL (2.0-7.7); Basophil# 0.03 X10^3/uL; Basophil% 0.3 % (0-1); Eosinophil# 0.05 X10^3/uL; Eosinophils% 0.4 % (0-5); Hematocrit 35.7 % (37-47); Lymphocyte # 3.32 X10^3/ul (0.83-4.51); Lymphocyte % 28.8 % (19-41); Mean Corp Hgb Conc 33.6 g/dL (32-36); Mean Corpuscular Hgb 31.2 pg (27.0-32.0); Mean Corpuscular Volume 92.7 fL (81-99); Mean Platelet Vol. 8.9 fl (6.2-12.0); Monocyte% 6.1 % (0-10); NRBC Flagged by Analyzer 0 % (0-5); Neutrophil # 7.37 X10^3/uL (2.7-7.7); Neutrophil % 64.1 % (47-70); Platelet Count 355 K/mm3 (150-450); RBC Distribution Width CV 13.3 % (11.6-14.6); RBC Distribution Width SD 44.8 fl (35.1-43.9); Red Blood Count 3.85 M/mm3 (4.2-5.4); White Blood Count 11.5 K/mm3 (4.4-11.0)
[2022-09-06 14:26] LABS: Anion Gap 8 (5-15); BUN 8 mg/dL (7-18); BUN/Creat Ratio 8.1 RATIO (10-20); Calcium,Total 9.5 mg/dL (8.5-10.1); Chloride 108 mmol/L (98-107); Creatinine, Serum 0.99 mg/dL (0.55-1.02); EST Glomerular Filtration Rate 65 mL/min (>60); Est Glom Filt Rate - Afr Amer 78 mL/min (>60); Estimated Creatinine Clearance 54.15 ml/min; Glucose 131 mg/dL (74-106); Potassium 3.8 mmol/L (3.5-5.1); Sodium Level 139 mmol/L (136-145); Troponin-I HS (w/2H Reflex) 4 pg/mL (3.0-54.0)
--- NOTE | 2022-09-06 15:00 | ED.RN ---
WARM COMPRESS APPLIED TO AREA OF IV EXTRAVASATION AT THIS TIME.
[2022-09-06] MEDS: diazePAM 2 MG Tablet 4 MG PO (15:12)
[2022-09-06] MEDS: HYDROmorphone 1 MG/ML Syringe IV (15:32)
[2022-09-06 16:02] LABS: Reflex Troponin-HS? (from REC) Y
[2022-09-06 17:04] LABS: D-Dimer Quantitative (DVT/PE) 0.39 FEU/ug/m (0.27-0.49)
[2022-09-06 17:11] LABS: Troponin-I HS 6 pg/mL (3.0-54.0)
== END 2022-09-06 17:32 | disposition home or self-care (01) ==
PROVIDERS: Emergency Provider Emergency Medicine; PCP Family Medicine; Visit Provider Emergency Medicine
DX: M54.9 Dorsalgia, unspecified (principal); R07.9 Chest pain, unspecified; F17.210 Nicotine dependence, cigarettes, uncomplicated
CPT/HCPCS: 36415; 71250; 80048; 84484; 85025; 85379; 93005; 96374; 96375; 99285; J7030; A4216; J2405

== ENCOUNTER 2024-04-08 17:35 | Emergency (ER) | payer MEDICAID, SELFPAY ==
[2024-04-08 17:36] VITALS: BP 152/99; PULSE 78; RESP 16; TEMP 36.8; O2SAT 99; BMI 29.7
--- NOTE | 2024-04-08 19:00 | EDS_ITS ---
<Statement entered by Kathy Diaz MD - 04/08/24 22:30> I have personally performed a face to face assessment of the patient and have reviewed the WILLIAM Note. Patient present secondary to worsening left shoulder pain. She has history of chronic shoulder pain and has been following with orthopedics. She had cortisone injection without improvement. She is scheduled to see a different physician in a couple days for a second opinion. She has developed muscle spasms over the top of her shoulder and into her neck. She states she has some medication to help with muscle spasms, but her Tylenol and ibuprofen at home were not relieving her pain. She has not had a recent injury. Patient sitting upright in bed no acute distress. She does appear uncomfortable. Head and neck examination unremarkable. Heart is regular rate and rhythm. Lung sounds are clear. Left upper extremity examination reveals muscular tenderness over the superior aspect of the left shoulder. Decreased range of motion secondary to pain. Strong distal pulses with normal sensation on testing. Patient has not had recent injury to her shoulder I do not feel she needs repeat imaging. OARRS report was reviewed and she has not had any narcotics in greater than 1 year. Patient will be given a sling for her arm along with a short course of Percocet. She will follow-up with orthopedics in 2 days as scheduled. HPI History of Present Illness Chief Complaint: Upper Extremity Injury Narrative Narrative: Patient is a 49-year-old female with history of breast cancer with bilateral mastectomy, cervical spinal surgery, who presents to the emergency department the chronic shoulder pain. Patient states that she has been seen Dr. Jordan who is a shoulder specialist. Her next appointment is in 2 days. Patient states that her pain has been more severe, she is having more shooting pains in her shoulder to her neck. She cannot wait for her appointment. She is here for pain control. Patient states her last time she had any narcotic pain medicine was greater than 1 year ago after she had her neck surgery. She is here for evaluation. Denies any chest pain or shortness of breath. [facility] Medical History Breast CA Home Medications pregabalin 75 mg capsule (Lyrica) 75 mg PO BID 07/25/21 [History Last Taken Unknown] cyclobenzaprine 10 mg tablet 10 mg PO TID PRN Muscle Spasm #20 TABLETS 09/06/22 [Rx Last Taken Unknown] hydrocodone-acetaminophen 5-325mg 5mg-325mg 1 tab PO Q4H PRN PRN Pain 2 days #14 TABLETS 09/06/22 [Rx Last Taken Unknown] lidocaine 5 % topical patch 1 patch transdermal DAILY 09/06/22 [History Last Taken Unknown] naproxen 500 mg tablet 500 mg PO BID #14 tabs 09/06/22 [Rx Last Taken Unknown] prednisone 20 mg tablet 40 mg PO BID 09/06/22 [History Last Taken Unknown] oxycodone-acetaminophen 5 mg-325 mg tablet (Percocet) 1 tab PO Q8H PRN pain 3 days #12 tabs 04/08/24 [Rx Last Taken Unknown] Allergy/AdvReac Type Severity Reaction Status Date / Time No Known Allergies Allergy Verified 04/08/24 17:39 Surgical History H/O mastectomy Hx of cholecystectomy Social History Smoking Status: Current every day smoker tobacco type: cigarettes ROS ROS ED ROS Narrative Constitutional: Negative for fever, chills, weight loss, weakness Eyes: Negative for vision loss, vision change, double vision ENT: Negative for any sore throat, ear pain, congestion Cardiovascular: Negative for any chest pain, tightness, palpitations Respiratory: Negative for any cough, sputum production, hemoptysis, dyspnea, dyspnea on exertion, orthopnea Gastrointestinal: Negative for any abdominal pain, nausea, vomiting, diarrhea, constipation, blood in stool, blood in vomit : Negative for any urinary frequency, dysuria, retention, blood in urine Muscle skeletal: Negative for any neck pain, back pain. Positive for left shoulder pain Neurological: Negative for any headache, syncope, dizziness Skin: Negative for any rashes, itching, abrasions, lacerations Psychiatric: Negative for any depression, anxiety, stress, suicidal ideation, homicidal ideation Hematologic: Negative for any excessive bruising, easy bleeding EXAM Physical Exam Narrative Exam Narrative: Vital signs reviewed. HEET: Head normocephalic atraumatic, TMs clear bilaterally. Posterior pharynx is clear, moist mucous membranes. Nares clear bilaterally. Neck: Supple with no lymphadenopathy or tenderness. No signs of meningismus. Cardiac: Regular rate and rhythm no murmurs gallops or rubs, equal peripheral pulses bilaterally. Respiratory: Lungs clear to auscultation bilaterally. No chest tenderness. Abdomen: Soft, nontender, nondistended. No abdominal bruit or pulsatile masses. No hepatosplenomegaly Extremities: No peripheral edema, no signs of gross trauma or deformity. Patient does have minimal movement without significant pain to the left shoulder. Worsening pain with abduction, abduction. Most the pain is superior, does radiate into her trapezius muscle. No numbness or tingling, no neurological focal deficit. 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 Neuro: Cranial nerves II through XII intact, no focal neurological deficits. Skin: Clean dry and intact with no rash, purpura, petechiae, vesicles or pustules. Backs/flank: No CVA tenderness, no midline spinal tenderness, no deformity. Psych: Normal mood and affect. No SI, HI or acute psychosis. Const Vital Signs: 04/08/24 17:36 Temperature 98.2 F Temperature Source Temporal Pulse Rate 78 Respiratory Rate 16 Blood Pressure 152/99 H Blood Pressure Mean 116 Pulse Ox 99 Oxygen Delivery Method Room Air Positive well nourished and well developed General Appearance ED: well developed MDM MDM Treatment and Re-Evaluation Narrative: Patient appears to be in no obvious respiratory distress, vital signs are stable. Patient presents to the emergency department with complaints of left shoulder pain has been ongoing for the last year. I spoke with the patient at length, she is here for pain control. I did look at the patient's OARRS, she is truthful, I do believe that a short course of pain medication will be helpful. Patient given IM morphine here, she be given Percocet 10 tablets. She will follow-up outpatient. She instructed return for any worsening symptoms, all questions were answered, patient stable for discharge. Discharge Plan Triage Chief Complaint: Upper Extremity Injury ED Midlevel Provider: Keith Perera ED Provider: Kathy Diaz Dx/Rx/DC Orders Clinical Impression: Anterior shoulder pain, Shoulder arthralgia Instructions: ED Arthralgia, ED Shoulder Sprain Prescriptions: New oxycodone-acetaminophen [Percocet] 5-325 mg tablet 1 tab PO Q8H PRN (Reason: pain) 3 Days Qty: 12 0RF No Action pregabalin [Lyrica] 75 mg Capsule 75 mg PO BID prednisone 20 mg tablet 40 mg PO BID Patient Comments: Take 2 tablets by mouth once daily for 5 days. lidocaine 5 % adhesive patch,medicated 1 patch transdermal DAILY Patient Comments: Apply 1 Patch as directed once daily for 14 days. Remove old patch prior to placing new patch. Location left shoulder/neck on for 12 hours and off for 12 hours cyclobenzaprine [cyclobenzaprine] 10 mg tablet 10 mg PO TID PRN (Reason: Muscle Spasm) Qty: 20 0RF hydrocodone-acetaminophen [hydrocodone-acetaminophen] 5-325 mg tablet 1 tab PO Q4H PRN PRN (Reason: Pain) 2 Days Qty: 14 0RF naproxen 500 mg tablet 500 mg PO BID Qty: 14 0RF Primary Care Provider: Nigel Tobar Referrals: Nigel Tobar MD [Primary Care Provider] - Activity Restrictions/Additional Instructions: Follow-up with your shoulder specialist. Use a sling. Disposition Disposition: Home, Self Care
[2024-04-08] MEDS: Ondansetron ODT 4 MG Tablet PO (19:15)
[2024-04-08] MEDS: Morphine 4 MG/ML Syringe IM (19:15)
== END 2024-04-08 19:37 | disposition home or self-care (01) ==
PROVIDERS: Emergency Provider Emergency Medicine; PCP Family Medicine; Visit Provider Emergency Medicine
DX: M25.512 Pain in left shoulder (principal); F17.210 Nicotine dependence, cigarettes, uncomplicated; Z85.3 Personal history of malignant neoplasm of breast
CPT/HCPCS: 93005; 96372; 99283

== ENCOUNTER 2025-01-24 11:48 | Emergency (ER) | payer MEDICAID, SELFPAY ==
[2025-01-24 11:48] VITALS: BP 134/89; PULSE 114; RESP 18; TEMP 36.7; O2SAT 97; BMI 28.3
--- NOTE | 2025-01-24 13:43 | ED.VIS.BACK ---
HPI History of Present Illness Chief Complaint: Back Informant: patient Narrative Narrative: 49-year-old female presenting to the emergency department with low back pain of 1 month duration. Patient states that she has developed low back pain described as throbbing sometimes dagger like with certain movements. She notes paresthesias into the posterior bilateral lower legs. She states that her neurosurgeons office at [facility] who performed a cervical operation on her order an MRI of her low back. This is due in about 3 hours. She denies any bowel or bladder dysfunction. No fevers. No history of UTI suppression. She has been able to ambulate without assistance. [facility] Medical History Degenerative disc disease Breast CA Home Medications ?Medication ?Instructions ?Recorded ?Last Taken ?Type pregabalin 75 mg capsule (Lyrica) 75 mg PO BID 07/25/21 Unknown History cyclobenzaprine 10 mg tablet 10 mg PO TID PRN Muscle Spasm #20 09/06/22 Unknown Rx TABLETS hydrocodone-acetaminophen 5-325mg 1 tab PO Q4H PRN PRN Pain 2 days 09/06/22 Unknown Rx 5mg-325mg #14 TABLETS lidocaine 5 % topical patch 1 patch transdermal DAILY 09/06/22 Unknown History naproxen 500 mg tablet 500 mg PO BID #14 tabs 09/06/22 Unknown Rx prednisone 20 mg tablet 40 mg PO BID 09/06/22 Unknown History oxycodone-acetaminophen 5 mg-325 1 tab PO Q8H PRN pain 3 days #12 04/08/24 Unknown Rx mg tablet (Percocet) tabs cyclobenzaprine 10 mg tablet 10 mg PO TID PRN Muscle Spasm #15 01/24/25 Unknown Rx TABLETS oxycodone-acetaminophen 5 mg-325 1 tab PO Q6H PRN PRN pain 5 days 01/24/25 Unknown Rx mg tablet #20 TABLETS prednisone 20 mg tablet 60 mg (3 x 20 mg) PO DAILY #15 01/24/25 Unknown Rx TABLETS Allergy/AdvReac Type Severity Reaction Status Date / Time No Known Allergies Allergy Verified 01/24/25 11:48 Surgical History H/O shoulder surgery H/O cervical spine surgery H/O mastectomy Hx of cholecystectomy Social History Smoking Status: Light Smoker (<10/day) ROS ROS ED Constitutional Constitutional ED: Denies chills or weight loss Eyes Eyes: Denies change in vision or diplopia ENT ENT ED: Denies ear pain, rhinorrhea or sore throat Cardiovascular Cardiovascular: Denies chest pain, orthopnea, palpitations or racing heartbeat Respiratory/Chest Respiratory/Chest: Denies cough, dyspnea or orthopnea Gastrointestinal Gastrointestinal: Denies abdominal pain, diarrhea, nausea or vomiting Genitourinary Genitourinary ED: Denies dysuria, hematuria or urinary frequency Musculoskeletal Musculoskeletal: Reports back pain; Denies arthralgias or myalgias Integumentary Denies abscess or rash Neurologic Neurologic: Reports paresthesias RLE and LLE; Denies headache(s) or weakness Psychiatric Psychiatric: Denies anxiety, depression, suicidal ideation or suicidal thoughts Endocrine Endocrinology: Denies polydipsia, polyphagia or polyuria Allergic/Immunologic Allergic/Immunologic ED: Denies mouth swelling, tongue swelling or urticaria EXAM Physical Exam Const Vital Signs: 01/24/25 11:48 01/24/25 13:56 Temperature 98.0 F 98.0 F Temperature Source Oral Pulse Rate 114 H 114 H Respiratory Rate 18 18 Blood Pressure 134/89 H 134/89 H Blood Pressure Mean 104 104 Pulse Ox 97 97 Oxygen Delivery Method Room Air Positive well nourished and well developed General Appearance ED: well developed HEENT Reports normocephalic, head/scalp atraumatic and moist mucous membranes Eyes PERRL and EOMs intact bilaterally Neck no lymphadenopathy, supple and no JVD Resp normal respiratory effort and clear to auscultation bilaterally Cardio regular rate, regular rhythm and no murmurs GI normal to inspection, nondistended, normoactive bowel sounds and non-tender Palpation: soft Back/Spine no CVA tenderness Back/Spine Narrative: Patient reports painful range of motion. She notes tenderness to palpation in the lumbar paraspinal musculature of the low back. There is no tissue texture changes to suggest underlying infection. Extremity normal to inspection General Extremety ED: Negative for edema General Extremity: Negative for edema Neuro oriented x3, CN's II-XII intact bilaterally and no sensory deficits noted Sensorium / Orientation: alert Motor Exam: strength 5/5 throughout Deep Tendon Reflexes: Rt Patellar (L4): 2+, Lt Patellar (L4): 2+, Rt Ankle (S1): 2+ and Lt Ankle (S1): 2+ Deep Tendon Reflexes Back: Rt Patellar (L4): 2+, Lt Patellar (L4): 2+, Rt Ankle (S1): 2+ and Lt Ankle (S1): 2+ Psych Mood & Affect: tearful; Negative for depressed Skin no rashes or lesions noted and no wounds MDM MDM MDM Narrative Medical decision making narrative: Differential diagnosis includes but not limited to lumbar radiculopathy herniated disc degenerative joint disease spinal stenosis cauda equina muscular spasm abscess hematoma Patient is neurologically intact. She has an MRI scheduled in 3 hours. I do not feel we need to obtain the MRI from the emergency standpoint. I can provide her some pain relief and give her some medications here as well as a prescription for pain medication and prednisone. Would recommend that she talk to her neurosurgeons office let them know that the MRI was completed later today. History & Record Review Discussion w/independent historian: Patient Discharge Plan Triage Chief Complaint: Back ED Provider: Jt Villarreal Dx/Rx/DC Orders Clinical Impression: Acute low back pain Prescriptions: New cyclobenzaprine 10 mg tablet 10 mg PO TID PRN (Reason: Muscle Spasm) Qty: 15 0RF oxycodone-acetaminophen 5-325 mg tablet 1 tab PO Q6H PRN PRN (Reason: pain) 5 Days Qty: 20 0RF prednisone 20 mg tablet 60 mg PO DAILY Qty: 15 0RF No Action pregabalin [Lyrica] 75 mg Capsule 75 mg PO BID prednisone 20 mg tablet 40 mg PO BID Patient Comments: Take 2 tablets by mouth once daily for 5 days. lidocaine 5 % adhesive patch,medicated 1 patch transdermal DAILY Patient Comments: Apply 1 Patch as directed once daily for 14 days. Remove old patch prior to placing new patch. Location left shoulder/neck on for 12 hours and off for 12 hours cyclobenzaprine [cyclobenzaprine] 10 mg tablet 10 mg PO TID PRN (Reason: Muscle Spasm) Qty: 20 0RF hydrocodone-acetaminophen [hydrocodone-acetaminophen] 5-325 mg tablet 1 tab PO Q4H PRN PRN (Reason: Pain) 2 Days Qty: 14 0RF naproxen 500 mg tablet 500 mg PO BID Qty: 14 0RF oxycodone-acetaminophen [Percocet] 5-325 mg tablet 1 tab PO Q8H PRN (Reason: pain) 3 Days Qty: 12 0RF Primary Care Provider: Nigel Tobar Referrals: Nigel Tobar MD [Primary Care Provider] - Activity Restrictions/Additional Instructions: I would strongly recommend you getting your MRI at 4:00 as scheduled. Please let your doctors office know that you got the MRI for them to review. Print Language: Kiswahili Disposition Disposition: Home, Self Care Discharge Date/Time: 01/24/25 14:02
[2025-01-24] MEDS: HYDROmorphone 1 MG/ML Syringe IM (13:50)
[2025-01-24] MEDS: Ketorolac 60 MG/2 ML Vial IM (13:50)
[2025-01-24 13:56] VITALS: BP 134/89; PULSE 114; RESP 18; TEMP 36.7; O2SAT 97
== END 2025-01-24 14:02 | disposition home or self-care (01) ==
PROVIDERS: Emergency Provider Emergency Medicine; PCP Family Medicine; Visit Provider Emergency Medicine
DX: M54.50 Low back pain, unspecified (principal); F17.200 Nicotine dependence, unspecified, uncomplicated
CPT/HCPCS: 96372; 99282

== ENCOUNTER 2025-10-07 11:32 | Emergency (ER) | payer MEDICARE, MEDICAID, SELFPAY ==
[2025-10-07 11:32] VITALS: BP 133/90; PULSE 97; RESP 18; TEMP 36.6; O2SAT 99; BMI 30.1
--- NOTE | 2025-10-07 14:46 | RAD_ITS ---
PROCEDURE: L/S SPINE MIN 4 VIEWS 10/07/2025 REASON FOR EXAM: BACK PAIN TECHNIQUE: Procedure Code: [id number] Modality: DX Procedure: L/S SPINE MIN 4 VIEWS COMPARISON: None FINDINGS: Curvature: No evidence of scoliosis. Other findings: Disc spaces are well-maintained. Mild degree of anterior spondylosis at the L3-L4 and L4-L5 levels. Other: Surgical clips are seen in the pelvis. Large amount of fecal material is seen in the colon. RAD/L/S Spine Min 4 Views IMPRESSION: Minimal degenerative changes of the lower lumbar spine. Reading Location: [id number]
[2025-10-07] MEDS: Orphenadrine 60 MG/2 ML Ampul IM (14:59)
--- NOTE | 2025-10-07 15:42 | EX.ED.DYSGE1 ---
HPI History of Present Illness Chief Complaint: Back Narrative Narrative: Patient is a 50-year-old female with a past medical history of breast cancer status postmastectomy, cervical disc disease status post fusion, chronic low back pain who presents to the emergency department with a chief complaint of back pain. States that her back pain has been going on for months and notes that she has been working with physical therapy and Occupational Therapy for about 6 weeks now and states that things are not getting better she feels that they are getting worse prompting her to come here for further evaluation management. She states that she is currently waiting for a MRI to be approved by her insurance. She states that she is urinating normally for self and having normal bowel movements. Denies any history of IV drug use denies any fevers. Patient states that she does smoke. Patient states that she has tried muscle laxer's at home as well as ibuprofen. [facility] Medical History Degenerative disc disease Breast CA Home Medications Medication Instructions Recorded Last Taken Type pregabalin 75 mg capsule (Lyrica) 75 mg PO BID 07/25/21 Unknown History cyclobenzaprine 10 mg tablet 10 mg PO TID PRN Muscle Spasm #20 09/06/22 Unknown Rx TABLETS hydrocodone-acetaminophen 5-325mg 1 tab PO Q4H PRN PRN Pain 2 days 09/06/22 Unknown Rx 5mg-325mg #14 TABLETS lidocaine 5 % topical patch 1 patch transdermal DAILY 09/06/22 Unknown History naproxen 500 mg tablet 500 mg PO BID #14 tabs 09/06/22 Unknown Rx prednisone 20 mg tablet 40 mg PO BID 09/06/22 Unknown History oxycodone-acetaminophen 5 mg-325 1 tab PO Q8H PRN pain 3 days #12 04/08/24 Unknown Rx mg tablet (Percocet) tabs cyclobenzaprine 10 mg tablet 10 mg PO TID PRN Muscle Spasm #15 01/24/25 Unknown Rx TABLETS oxycodone-acetaminophen 5 mg-325 1 tab PO Q6H PRN PRN pain 5 days 01/24/25 Unknown Rx mg tablet #20 TABLETS prednisone 20 mg tablet 60 mg (3 x 20 mg) PO DAILY #15 01/24/25 Unknown Rx TABLETS lidocaine 5 % topical patch 1 patch topical DAILY PRN pain #15 10/07/25 Unknown Rx (Lidoderm) ea ondansetron 4 mg disintegrating 4 mg PO Q6H PRN nausea and 10/07/25 Unknown Rx tablet vomiting #20 tabs oxycodone-acetaminophen 5 mg-325 1 tab PO Q6H PRN pain 3 days #12 10/07/25 Unknown Rx mg tablet (Endocet) tabs prednisone 50 mg tablet 50 mg PO DAILY 5 days #5 tabs 10/07/25 Unknown Rx Allergy/AdvReac Type Severity Reaction Status Date / Time No Known Allergies Allergy Verified 10/07/25 11:33 Surgical History H/O shoulder surgery H/O cervical spine surgery H/O mastectomy Hx of cholecystectomy Social History Smoking Status: Light Smoker (<10/day) ROS ROS ED ROS Narrative Constitutional: Denies any fevers, chills, headaches Abdomen: Denies abdominal pain nausea vomit diarrhea : Denies any urinary symptoms Neurological: States that her back pain radiates down her left leg to her knee denies any other numbness or tingling Musculoskeletal: Complains of back pain as noted above Skin: Denies any rashes or lesions EXAM Physical Exam Narrative Exam Narrative: General: Patient was lying in bed rest comfortably did not appear to be in acute distress Head: Atraumatic, normocephalic Eyes: PERRL bilaterally, EOMI bilaterally, no conjunctival injection noted Neck: Soft, supple, trachea midline Cardiovascular: Regular rate and rhythm Respiratory: Clear to auscultation bilaterally Extremities: +5/5 strength noted in the bilateral upper and lower extremities, Neurological: Patient follow commands that she was at [facility] the year is 2024 sensation grossly intact Skin: Warm, dry, intact no rashes or lesions noted Const Vital Signs: 10/07/25 11:32 Temperature 97.8 F Temperature Source Oral Pulse Rate 97 Respiratory Rate 18 Blood Pressure 133/90 H Blood Pressure Mean 104 Pulse Ox 99 MDM MDM MDM Narrative Medical decision making narrative: Patient is a 42-year-old female who presented to the emergency department chief complaint of low back pain. On the differential diagnose includes but not limited to chronic back pain, musculoskeletal strain, compression fracture although I have low suspicion for this. Once workup is obtained and reviewed she will be reevaluated. Patient be given IM Norflex, prednisone orally 60 mg as well as IM morphine 10 mg. Patient's lumbar x-ray reviewed which was reviewed by myself and by radiology showed minimal degenerative changes in the lower lumbar spine. On reevaluation the patient she is feeling much better and would like to go home at this point time. I advised her that she should rotate Tylenol and ibuprofen [id number] for mild to moderate pain. She was advised to use Lidoderm patch as prescribed we will give her a short course of steroids as well she prefers to not have a long course as last time she developed thrush. Also be given prescription for Endocet and Zofran to use for severe pain she is advised to not operate anything under the influence this medication. She is also advised to use her muscle relaxers that she was already prescribed as well. She is vies follow-up with her doctor in outpatient setting and return with worsening symptoms or concerns. She is agreeable this plan all question concerns answered she is discharged home in stable condition. Radiography Diagnostic Testing: Clinical Impression(s) from Imaging Studies Lumbar Spine X-Ray 10/07/25 14:46 IMPRESSION: Minimal degenerative changes of the lower lumbar spine. Reading Location: [id number] Discharge Plan Triage Chief Complaint: Back ED Provider: Willie Herrmann Dx/Rx/DC Orders Clinical Impression: Back pain, History of degenerative joint disease Prescriptions: New lidocaine [Lidoderm] 5 % adhesive patch,medicated 1 patch topical DAILY PRN (Reason: pain) Qty: 15 0RF Rx Instructions: leave on most painful area for up to 12 hrs oxycodone-acetaminophen [Endocet] 5-325 mg tablet 1 tab PO Q6H PRN (Reason: pain) 3 Days Qty: 12 0RF prednisone 50 mg tablet 50 mg PO DAILY 5 Days Qty: 5 0RF ondansetron 4 mg tablet,disintegrating 4 mg PO Q6H PRN (Reason: nausea and vomiting) Qty: 20 0RF No Action pregabalin [Lyrica] 75 mg Capsule 75 mg PO BID prednisone 20 mg tablet 40 mg PO BID Patient Comments: Take 2 tablets by mouth once daily for 5 days. lidocaine 5 % adhesive patch,medicated 1 patch transdermal DAILY Patient Comments: Apply 1 Patch as directed once daily for 14 days. Remove old patch prior to placing new patch. Location left shoulder/neck on for 12 hours and off for 12 hours cyclobenzaprine [cyclobenzaprine] 10 mg tablet 10 mg PO TID PRN (Reason: Muscle Spasm) Qty: 20 0RF hydrocodone-acetaminophen [hydrocodone-acetaminophen] 5-325 mg tablet 1 tab PO Q4H PRN PRN (Reason: Pain) 2 Days Qty: 14 0RF naproxen 500 mg tablet 500 mg PO BID Qty: 14 0RF oxycodone-acetaminophen [Percocet] 5-325 mg tablet 1 tab PO Q8H PRN (Reason: pain) 3 Days Qty: 12 0RF cyclobenzaprine 10 mg tablet 10 mg PO TID PRN (Reason: Muscle Spasm) Qty: 15 0RF oxycodone-acetaminophen 5-325 mg tablet 1 tab PO Q6H PRN PRN (Reason: pain) 5 Days Qty: 20 0RF prednisone 20 mg tablet 60 mg PO DAILY Qty: 15 0RF Primary Care Provider: Nathalia Morrow Referrals: Nathalia Morrow MD [Primary Care Provider, Family Practice] Activity Restrictions/Additional Instructions: Start taking the steroids tomorrow as you already given a dose here in the emergency department. Use prescriptions as prescribed. Rotate Tylenol and ibuprofen [id number] for mild to moderate pain when you do this you can take something every 3 hours for pain max dose Tylenol in 24 hours for 1000 mg max dose of ibuprofen in 24 hours 3200 mg. Do not operate anything under the influence of the muscle relaxers or the narcotics as able make you sleepy and drowsy. Print Language: Estonian Disposition Disposition: Home, Self Care D/C Safety Score for UGIB Assessment [place] Bleeding Score (GBS): Stratifies upper GI bleeding patients who are "low-risk" and candidates for outpatient management. Hemoglobin, BUN, Recent Vital Signs: Pulse Rate 97 Blood Pressure 133/90 Total Risk Score: 1 Score Interpretation: Score of 0: A GBS of 0 is a “Low Risk” GI bleed, and is highly sensitive (99.6% in a 2007 retrospective study) for predicting which patients did not require any “medical intervention”: blood transfusion, endoscopy, or surgery. This was confirmed in a [address] [facility] study where patients with a score of 0 were actually discharged and had no GI bleeding mortality at 6 month followup Score above 0: A GBS greater than zero suggests a “High Risk” GI bleed that is likely to require “medical intervention”: transfusion, endoscopy, or surgery. A higher GBS also correlated with a higher likelihood of needing intervention Scores >/= 6 are associated with >50% risk of needing intervention D/C Safety Score for LGIB Assessment Assessment Tool: Readmission and adverse event risk in patients with acute lower GI bleeding. Age, in years: 40-69 Hemoglobin and Recent Vital Signs: Pulse Rate 97 10/07/25 11:32 Blood Pressure 133/90 10/07/25 11:32 Probability of safe discharge: 99% Total Risk Score: 1 Score Interpretation: Probability Percentage of safe discharge (absence of rebleeding, blood transfusion, therapeutic intervention, 28 day readmission, or ) Score of 8 or below: Consider discharge, with appropriate precautions. Score of 9 or above: Discharge NOT recommended. Consider admission with further workup and resuscitation as necessary.
[2025-10-07 15:55] VITALS: BP 132/82; PULSE 69; RESP 14; TEMP 36.6; O2SAT 99
== END 2025-10-07 16:03 | disposition home or self-care (01) ==
PROVIDERS: Emergency Provider Emergency Medicine; PCP Pediatrics; Visit Provider Emergency Medicine
DX: M54.50 Low back pain, unspecified (principal); F17.200 Nicotine dependence, unspecified, uncomplicated
CPT/HCPCS: 72110; 96372; 99282

== ENCOUNTER 2025-11-13 10:52 | Emergency (ER) | payer MEDICARE, SELFPAY ==
[2025-11-13 10:52] VITALS: BP 179/104; PULSE 97; RESP 14; TEMP 37.2; O2SAT 98; BMI 30.4
--- NOTE | 2025-11-13 14:30 | ED.VIS.DENTA ---
HPI History of Present Illness Chief Complaint: Dental Narrative Narrative: Patient is a 50-year-old female who presented to the emergency department chief complaint of dental pain. States about a month ago she had a filling that fell out and she has not been able to get in to see a dentist and she states that the ibuprofen and Tylenol are not touching the pain therefore she came here to be further evaluated. Patient states that she has been eating and drinking and swallowing without any difficulty denies any fevers PFSH PFSH Medical History Degenerative disc disease Breast CA Home Medications ?Medication ?Instructions ?Recorded ?Last Taken ?Type pregabalin 75 mg capsule (Lyrica) 75 mg PO BID 07/25/21 Unknown History cyclobenzaprine 10 mg tablet 10 mg PO TID PRN Muscle Spasm #20 09/06/22 Unknown Rx TABLETS hydrocodone-acetaminophen 5-325mg 1 tab PO Q4H PRN PRN Pain 2 days 09/06/22 Unknown Rx 5mg-325mg #14 TABLETS lidocaine 5 % topical patch 1 patch transdermal DAILY 09/06/22 Unknown History naproxen 500 mg tablet 500 mg PO BID #14 tabs 09/06/22 Unknown Rx prednisone 20 mg tablet 40 mg PO BID 09/06/22 Unknown History oxycodone-acetaminophen 5 mg-325 1 tab PO Q8H PRN pain 3 days #12 04/08/24 Unknown Rx mg tablet (Percocet) tabs cyclobenzaprine 10 mg tablet 10 mg PO TID PRN Muscle Spasm #15 01/24/25 Unknown Rx TABLETS oxycodone-acetaminophen 5 mg-325 1 tab PO Q6H PRN PRN pain 5 days 01/24/25 Unknown Rx mg tablet #20 TABLETS prednisone 20 mg tablet 60 mg (3 x 20 mg) PO DAILY #15 01/24/25 Unknown Rx TABLETS lidocaine 5 % topical patch 1 patch topical DAILY PRN pain #15 10/07/25 Unknown Rx (Lidoderm) ea ondansetron 4 mg disintegrating 4 mg PO Q6H PRN nausea and 10/07/25 Unknown Rx tablet vomiting #20 tabs oxycodone-acetaminophen 5 mg-325 1 tab PO Q6H PRN pain 3 days #12 10/07/25 Unknown Rx mg tablet (Endocet) tabs prednisone 50 mg tablet 50 mg PO DAILY 5 days #5 tabs 10/07/25 Unknown Rx clindamycin HCl 300 mg capsule 300 mg PO TID #21 caps 11/13/25 Unknown Rx (Cleocin HCl) ondansetron 4 mg disintegrating 4 mg PO Q6H PRN nausea and 11/13/25 Unknown Rx tablet vomiting #20 tabs oxycodone-acetaminophen 5 mg-325 1 tab PO Q6H PRN pain 3 days #12 11/13/25 Unknown Rx mg tablet (Endocet) tabs Allergy/AdvReac Type Severity Reaction Status Date / Time No Known Allergies Allergy Verified 11/13/25 10:53 Surgical History H/O shoulder surgery H/O cervical spine surgery H/O mastectomy Hx of cholecystectomy Social History Smoking Status: Light Smoker (<10/day) ROS ROS ED ROS Narrative Constitutional: Denies any fevers, chills, headaches Eyes: Complains of dental pain as noted above denies any difficulty swallowing Neurological: Denies any numbness, wheeze, tingling Skin: Denies rashes or lesions EXAM Physical Exam Narrative Exam Narrative: General: Patient lying in bed rest comfortably did not appear to be in acute distress Head: Atraumatic, normocephalic Eyes: PERRL bilaterally, EOMI bilaterally, no conjunctival injection noted patient does have a cracked tooth without a filling noted in the third to last tooth on the upper left side no concern for abscess, no sublingual swelling Neck: Soft, supple, trachea midline, no evidence of Bharath's angina Cardiovascular: Regular rate Extremities: +5/5 strength noted in the bilateral lower extremities Neurological: Patient following commands knew that she was at [facility] year is 2024 Skin: Warm, dry, intact no rashes or lesions noted Const Vital Signs: 11/13/25 10:52 Temperature 99 F Temperature Source Temporal Pulse Rate 97 Respiratory Rate 14 Blood Pressure 179/104 H Blood Pressure Mean 129 Pulse Ox 98 Oxygen Delivery Method Room Air MDM MDM MDM Narrative Medical decision making narrative: Patient is a 50-year-old female who presented to the emergency department the chief complaint of dental pain. On the differential diagnose includes but not noted to dental carry, periapical abscess, cracked tooth. Patient will be given [place], Zofran and dose of clindamycin hand emergency department Discussed the plan with the patient this includes her rotating Tylenol and ibuprofen [id number] when she does this she will take something every 3 hours for pain. She will be given prescriptions for Endocet and Zofran she was advised to use this for severe pain and not to operate anything under the influence this medication. She was given a prescription for clindamycin she will be given a dental referral list. She was encouraged to return with worsening symptoms or concerns. All question concerns answered she was discharged home in stable condition. Discharge Plan Triage Chief Complaint: Dental ED Provider: Willie Herrmann Dx/Rx/DC Orders Clinical Impression: Pain, dental, Cracked tooth Prescriptions: New clindamycin HCl [Cleocin HCl] 300 mg capsule 300 mg PO TID Qty: 21 0RF oxycodone-acetaminophen [Endocet] 5-325 mg tablet 1 tab PO Q6H PRN (Reason: pain) 3 Days Qty: 12 0RF ondansetron 4 mg tablet,disintegrating 4 mg PO Q6H PRN (Reason: nausea and vomiting) Qty: 20 0RF No Action pregabalin [Lyrica] 75 mg Capsule 75 mg PO BID prednisone 20 mg tablet 40 mg PO BID Patient Comments: Take 2 tablets by mouth once daily for 5 days. lidocaine 5 % adhesive patch,medicated 1 patch transdermal DAILY Patient Comments: Apply 1 Patch as directed once daily for 14 days. Remove old patch prior to placing new patch. Location left shoulder/neck on for 12 hours and off for 12 hours cyclobenzaprine [cyclobenzaprine] 10 mg tablet 10 mg PO TID PRN (Reason: Muscle Spasm) Qty: 20 0RF hydrocodone-acetaminophen [hydrocodone-acetaminophen] 5-325 mg tablet 1 tab PO Q4H PRN PRN (Reason: Pain) 2 Days Qty: 14 0RF naproxen 500 mg tablet 500 mg PO BID Qty: 14 0RF oxycodone-acetaminophen [Percocet] 5-325 mg tablet 1 tab PO Q8H PRN (Reason: pain) 3 Days Qty: 12 0RF lidocaine [Lidoderm] 5 % adhesive patch,medicated 1 patch topical DAILY PRN (Reason: pain) Qty: 15 0RF Rx Instructions: leave on most painful area for up to 12 hrs oxycodone-acetaminophen [Endocet] 5-325 mg tablet 1 tab PO Q6H PRN (Reason: pain) 3 Days Qty: 12 0RF prednisone 50 mg tablet 50 mg PO DAILY 5 Days Qty: 5 0RF ondansetron 4 mg tablet,disintegrating 4 mg PO Q6H PRN (Reason: nausea and vomiting) Qty: 20 0RF cyclobenzaprine 10 mg tablet 10 mg PO TID PRN (Reason: Muscle Spasm) Qty: 15 0RF oxycodone-acetaminophen 5-325 mg tablet 1 tab PO Q6H PRN PRN (Reason: pain) 5 Days Qty: 20 0RF prednisone 20 mg tablet 60 mg PO DAILY Qty: 15 0RF Primary Care Provider: Nathalia Morrow Referrals: Nathalia Morrow MD [Primary Care Provider, [facility]] Activity Restrictions/Additional Instructions: Take antibiotics as prescribed. Rotate Tylenol and ibuprofen [id number] when you do this you can take something every 3 hours for pain max dose of Tylenol in 24 hours 4000 mg max dose of ibuprofen in 24 hours 3200 mg. Use the Endocet for severe pain as prescribed do not operate anything under the influence of this medication as it will make you sleepy and drowsy Ensure that you take the Zofran with this as it will upset your stomach as well. Follow-up with a dentist you were given a dental referral list. Return with worsening symptoms or other concerns Print Language: Latvian Disposition Disposition: Home, Self Care
[2025-11-13] MEDS: HYDROcodone Bitartrate/Apap 5/325 Tablet PO (14:32)
[2025-11-13 14:46] VITALS: BP 148/99; PULSE 79; RESP 14; TEMP 36.6; O2SAT 100
--- NOTE | 2025-11-13 15:52 | CM.ED ---
Social Work Reason for visit: Needing dental list Patient stated that she does not currently have a dentist, and is worried she will not be able to find one that takes her insurance. SW gave patient a list of dental offices that will take most insurances or work on a sliding scale. Patient appreciative of list. Martine Murry, [employer], [place]
== END 2025-11-13 14:48 | disposition home or self-care (01) ==
PROVIDERS: Emergency Provider Emergency Medicine; PCP Pediatrics; Visit Provider Emergency Medicine
DX: K08.89 Other specified disorders of teeth and supporting structures (principal); K03.81 Cracked tooth; F17.200 Nicotine dependence, unspecified, uncomplicated
CPT/HCPCS: 99283